=== PATIENT | female | born 1950 | race Caucasian/White ===

== ENCOUNTER → 2016-05-26 | Day surgery (SDC) | payer OTHER ==
--- NOTE | 2016-05-28 14:47 | PATH ---
Surgical Pathology Report Patient Name: MELI HALL [facility]. Rec. #: [id number] /Age/Gender: 1950 (Age: 66) / F Account: [id number] Location: [facility] Taken: 05/26/2016 Received: 05/26/2016 Reported: 05/28/2016 Physicians: MD Kehinde Davis M.D. Specimen(s) Received RIGHT BREAST 3:00 4CM FN CORE BIOPSY Clinical History Ultrasound findings: Probably benign Rule out cyst cluster Final Diagnosis BREAST, RIGHT, 3:00, 4 CM FN, CORE BIOPSY: BENIGN BREAST TISSUE SHOWING FIBROADENOMATOID CHANGE. Electronically Signed Mary Billings M.D. Gross Description Received in formalin labeled "right breast 3:00, 4 cmfn," are 5 de anda-yellow fragments of fibroadipose tissue ranging from 0.4-0.7 cm in length and averaging 0.2 cm in diameter. The specimen is submitted in toto in one cassette. Time to formalin fixation: 2 minutes Total formalin fixation time: Approximately 30 hours. 05/27/2016 [facility]05/27/2016
== END | disposition home or self-care (01) ==
LOC: FRADUS-SUR 11:53
PROVIDERS: ATTEND Family Medicine
PROC: 0HBT3ZX Excision of Right Breast, Percutaneous Approach, Diagnostic (ICD-10-PCS; principal; 2016-05-26)
DX: N63 Unspecified lump in breast (principal); N64.89 Other specified disorders of breast
CPT/HCPCS: 19083; 87899; 88305-TC; A4648; G0206-TC

== ENCOUNTER 2024-03-19 13:20 | Emergency (ER) | payer OTHER ==
[2024-03-19 13:29] VITALS: BMI 25.4
[2024-03-19] MEDS ORDERED: ACETAMINOPHEN INJECTION 100 ML ONE (14:54)
[2024-03-19] MEDS: ACETAMINOPHEN 1000 MG/100 ML BAG IVPB ONE (14:57)
[2024-03-19 15:02] LABS: BASO % 0.4 % (0-2.0); EOS % 2.7 % (0-4.5); HEMATOCRIT 42.9 % (32.4-45.2); HEMOGLOBIN 13.8 GM/dL (10.7-15.3); LYMPH % 27.4 % (8-40); MCH 26.9 pg (25.7-33.7); MEAN CELL VOLUME 84.1 fl (80-96); MEAN PLT VOLUME 8.7 fl (7.5-11.1); MONO % 11.2 % (3.8-10.2); NEUT % 58.3 % (42.8-82.8); PLATELET COUNT 214 10^3/uL (134-434); RDW 14.7 % (11.6-15.6); WHITE BLOOD COUNT 4.5 K/mm3 (4.0-10.0)
[2024-03-19 15:32] LABS: POTASSIUM 3.9 mmol/L (3.5-5.1)
[2024-03-19 15:33] LABS: ALBUMIN 4.1 g/dl (3.4-5.0); BLOOD UREA NITROGEN 15.3 mg/dL (7-18); CALCIUM 9.5 mg/dL (8.5-10.1)
[2024-03-19 15:37] LABS: CREATININE 0.8 mg/dL (0.55-1.3)
[2024-03-19 15:39] LABS: BILIRUBIN,TOTAL 0.4 mg/dL (0.2-1)
[2024-03-19 16:41] VITALS: BP 123/60; PULSE 63; RESP 16; TEMP 98.6
== END 2024-03-19 16:41 | disposition home or self-care (01) ==
LOC: JER 13:20
PROC: 3E033NZ Introduction of Analgesics, Hypnotics, Sedatives into Peripheral Vein, Percutaneous Approach (ICD-10-PCS; principal; 2024-03-19)
DX: J10.1 Influenza due to other identified influenza virus with other respiratory manifestations (principal); R07.89 Other chest pain; M25.512 Pain in left shoulder; Z20.822 Contact with and (suspected) exposure to COVID-19
CPT/HCPCS: 0241U-QW; 36415; 71045-TC-FY; 73030-TC-LT-FY; 80053; 84484; 85025; 93005; 93010; 96374; 99285-25; J0131